=== PATIENT | male | born 1985 | race African-American/Black ===

== ENCOUNTER 2023-05-11 10:21 | Emergency (ER) | payer SELFPAY ==
[~2023-05-11 10:21] MED LIST: Lidocaine 1% with EPINEPHrine 1:100,000 20 ML MDV INFILT ONE
[2023-05-11] MEDS ORDERED: Diphtheria,Pertussis(Acell),Tetanus Vaccine 0.5 ML Syringe IM ONE (10:48)
[2023-05-11] MEDS ORDERED: Bacitracin Oint 1 GM U/D Packet TOP ONE (10:58)
== END 2023-05-11 11:35 ==
LOC: FB.ED 10:21
DX: S01.01XA Laceration without foreign body of scalp, initial encounter (principal); Z23 Encounter for immunization; Y04.0XXA Assault by unarmed brawl or fight, initial encounter
CPT/HCPCS: 12002; 90471; 90715; 99283-25